=== PATIENT | male | born 1975 | race Caucasian/White ===

== ENCOUNTER 2016-04-26 18:54 | Emergency (ER) | payer BC, OTHER ==
[2016-04-26 20:48] VITALS: BP 149/92
--- NOTE | 2016-04-26 21:52 | UC ---
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 SWALLOWING DOES NOT HURT. - History of Current Complaint Chief Complaint: UCRespiratory Stated Complaint: SINUSES, SORE THROAT Time Seen by Provider: 04/26/16 21:04 Hx Obtained From: Patient Onset/Duration: Sudden Onset, Lasting Days - 2, Still Present Severity: Moderate Pain Intensity: 6 Cough: Nonproductive Associated Signs & Symptoms: Positive: Sinus Discomfort, Nasal Discharge. Negative: Dysphagia, Drooling, Wheezing, Hoarseness, Fever, Vomiting, Rash - Allergies/Home Medications Allergies/Adverse Reactions: Allergies Allergy/AdvReac Type Severity Reaction Status Date / Time Benzonatate [From Tessalon] Allergy Severe Anaphylatic Verified 04/26/16 20:41 Shock Cephalexin [From Keflex] Allergy Severe Anaphylatic Verified 04/26/16 20:41 Shock Penicillins Allergy Unknown See Comment Verified 04/26/16 20:41 Levofloxacin [From Levaquin] Allergy Hives Verified 04/26/16 20:41 Home Medications: Home Medications Chlorthalidone 25 mg PO DAILY 04/26/16 [History Confirmed 04/26/16] Fenofibrate 40 mg PO DAILY 04/26/16 [History Confirmed 04/26/16] Losartan Potassium [Cozaar] 25 mg PO DAILY 04/26/16 [History Confirmed 04/26/16] glyBURIDE TAB* [Diabeta TAB*] 2.5 mg PO DAILY 04/26/16 [History Confirmed ] metFORMIN* [Glucophage*] 500 mg PO BID 04/26/16 [History Confirmed 04/26/16] PMH/Surg Hx/FS Hx/Imm Hx Endocrine History Of: Reports: Diabetes Cardiovascular History Of: Reports: Cardiac Disorders - A-fib, Hypertension - Surgical History Surgical History: Yes Surgery Procedure, Year, and Place: T&A 2014 - Family History Known Family History: Positive: Cardiac Disease, Hypertension, Diabetes - Social History Occupation: Employed Full-time Lives: With Family Alcohol Use: None Substance Use Type: None Smoking Status (MU): Never Smoked Tobacco Review of Systems Constitutional: Negative Skin: Negative Eyes: Negative ENT: Sore Throat, Nasal Discharge, Other - SEE HPI Respiratory: Cough Cardiovascular: Negative Gastrointestinal: Negative Genitourinary: Negative Motor: Negative Neurovascular: Negative Musculoskeletal: Negative Neurological: Negative Psychological: Negative All Other Systems Reviewed And Are Negative: Yes Physical Exam Triage Information Reviewed: Yes Appearance: Well-Appearing, No Pain Distress, Obese Vital Signs: Initial Vital Signs Temp 97.8 F 04/26/16 20:44 Pulse 70 04/26/16 20:44 Resp 20 04/26/16 20:44 BP 149/92 04/26/16 20:44 Pulse Ox 97 04/26/16 20:44 Vital Signs Reviewed: Yes Eyes: Positive: Conjunctiva Clear. Negative: Discharge ENT: Positive: Hearing grossly normal, Pharynx normal, Nasal congestion, Nasal drainage, TMs normal. Negative: Tonsillar swelling, Tonsillar exudate, Trismus , Muffled/hoarse voice Dental Exam: Normal Neck: Positive: Supple, Nontender, No Lymphadenopathy Respiratory: Positive: Lungs clear, Normal breath sounds, No respiratory distress, No accessory muscle use Cardiovascular: Positive: RRR, No Murmur Musculoskeletal Exam: Normal Musculoskeletal: Positive: Strength Intact Neurological: Positive: Alert, Muscle Tone Normal Psychological: Positive: Age Appropriate Behavior Skin Exam: Normal Throat Pain/Nasal Course/Dx - Differential Dx/Diagnosis Differential Diagnosis/HQI/PQRI: Pharyngitis, Sinusitis, URI Provider Diagnoses: SINUSITIS Discharge - Discharge Plan Condition: Stable Disposition: HOME Patient Education Materials: Sinusitis (ED) Referrals: Anant Elmore MD [Primary Care Provider] - 5 Days Additional Instructions: EXPECTORANT MEDICATION: An expectorant medicine has been prescribed. This type of drug makes mucous thinner, helping the sinuses, nose, and bronchial tubes to remain free of pus and mucous. Expectorants make a cough less severe and more comfortable, and help infected sinuses drain. In general, antihistamines defeat the purpose of the expectorant by making mucous thicker. They should be avoided unless specifically recommended by your physician.
== END 2016-04-26 21:48 | disposition home or self-care (01) ==
LOC: UCCORT 18:54
DX: J32.9 Chronic sinusitis, unspecified (principal); Z88.1 Allergy status to other antibiotic agents; Z88.0 Allergy status to penicillin; Z88.8 Allergy status to other drugs, medicaments and biological substances; E11.9 Type 2 diabetes mellitus without complications; Z79.84 Long term (current) use of oral hypoglycemic drugs; I10 Essential (primary) hypertension; I48.91 Unspecified atrial fibrillation
CPT/HCPCS: 99211; G0463

== ENCOUNTER 2016-05-11 09:33 | Emergency (ER) | payer OTHER ==
[2016-05-11 10:48] VITALS: BP 154/102
--- NOTE | 2016-05-11 10:54 | UC ---
Respiratory Complaint HPI - HPI Summary HPI Summary: cough, yellow sputum, chest hurts to cough. Cough hasn't gotten better and has gotten worse since 04/26/16 when he was seen here and dx viral URI - History of Current Complaint Chief Complaint: UCRespiratory Stated Complaint: COUGH,CONGESTION Time Seen by Provider: 05/11/16 10:53 Hx Obtained From: Patient Onset/Duration: Gradual Onset, Lasting Weeks, Still Present Timing: Constant Severity Initially: Moderate Severity Currently: Moderate Pain Intensity: 0 - with cough Pain Scale Used: 0-10 Numeric Character: Cough: Productive - yellow Aggravating Factors: Nothing Alleviating Factors: Nothing Associated Signs And Symptoms: Positive: Pleuritic Chest Pain, Wheezing, URI, Nasal Congestion. Negative: Fever, Chills - Risk Factors Pulmonary Embolism Risk Factors: Negative Cardiac Risk Factors: Negative Pseudomonas Risk Factors: Negative - Allergies/Home Medications Allergies/Adverse Reactions: Allergies Allergy/AdvReac Type Severity Reaction Status Date / Time Benzonatate [From Tessalon] Allergy Severe Anaphylatic Verified 05/11/16 10:48 Shock Cephalexin [From Keflex] Allergy Severe Anaphylatic Verified 05/11/16 10:48 Shock Penicillins Allergy Unknown See Comment Verified 05/11/16 10:48 Levofloxacin [From Levaquin] Allergy Hives Verified 05/11/16 10:48 PMH/Surg Hx/FS Hx/Imm Hx Endocrine History Of: Reports: Diabetes Cardiovascular History Of: Reports: Cardiac Disorders - A-fib, Hypertension - Surgical History Surgical History: Yes Surgery Procedure, Year, and Place: T&A 2014 - Family History Known Family History: Positive: Cardiac Disease, Hypertension, Diabetes - Social History Occupation: Employed Full-time Lives: With Family Alcohol Use: None Substance Use Type: None Smoking Status (MU): Never Smoked Tobacco Review of Systems Constitutional: Negative Skin: Negative Eyes: Negative ENT: Negative Respiratory: Cough Cardiovascular: Chest Pain - with cough Gastrointestinal: Negative Genitourinary: Negative Motor: Negative Neurovascular: Negative Musculoskeletal: Negative Neurological: Negative Psychological: Negative All Other Systems Reviewed And Are Negative: Yes Physical Exam Triage Information Reviewed: Yes Appearance: No Pain Distress, Ill-Appearing, Obese Vital Signs: Initial Vital Signs Temp 97.6 F 05/11/16 10:44 Pulse 79 05/11/16 10:44 Resp 16 05/11/16 10:44 BP 154/102 05/11/16 10:44 Pulse Ox 95 05/11/16 10:44 elevated BP noted, hasn't taken BP meds this am Vital Signs Reviewed: Yes Eyes: Positive: Conjunctiva Clear ENT: Positive: Pharyngeal erythema, TMs normal Neck: Positive: Supple, Nontender Respiratory: Positive: Lungs clear, Normal breath sounds, No respiratory distress Cardiovascular: Positive: RRR, No Murmur, Pulses Normal, Brisk Capillary Refill Musculoskeletal: Positive: Strength Intact, ROM Intact Neurological: Positive: Alert, Muscle Tone Normal Psychological Exam: Normal Skin Exam: Normal UC Diagnostic Evaluation - Laboratory O2 Sat by Pulse Oximetry: 95 Respiratory Course/Dx - Differential Dx/Diagnosis Differential Diagnosis/HQI/PQRI: Asthma, Bronchitis, Lower Resp Infection, Sinusitis Provider Diagnoses: bonchitis. bronchospasm Discharge - Discharge Plan Condition: Stable Disposition: HOME Prescriptions: Albuterol HFA INHALER* [Ventolin HFA Inhaler*] 2 puff INH Q4H PRN #1 mdi PRN Reason: Cough Azithromycin TAB* [Zithromax TAB (Z-ETHAN) 250 mg #6 tabs] 2 tab PO .TODAY, THEN 1 DAILY #1 ethan guaiFENesin/CODIEN 100MG-10MG* [Robitussin AC 100Mg-10Mg*] 5 ml PO Q4H PRN #100 ml MDD 20ml PRN Reason: Cough Patient Education Materials: Acute Bronchitis (ED) Referrals: Anant Elmore MD [Primary Care Provider] -
== END 2016-05-11 11:16 | disposition home or self-care (01) ==
LOC: UCCORT 09:33
DX: J40 Bronchitis, not specified as acute or chronic (principal); J98.01 Acute bronchospasm; E11.9 Type 2 diabetes mellitus without complications; I48.91 Unspecified atrial fibrillation; I10 Essential (primary) hypertension; Z88.1 Allergy status to other antibiotic agents; Z88.0 Allergy status to penicillin; Z88.8 Allergy status to other drugs, medicaments and biological substances
CPT/HCPCS: 99212; G0463

== ENCOUNTER 2017-07-30 17:23 | Emergency (ER) | payer OTHER ==
--- OUTSIDE RECORDS SUMMARY | 2017-07-30 18:35 | XMS REPORT ---
:1975 External Reference #:[id number] Author Organization [facility] Address [address], [address] [place] [address] Phone [phone] Care Team Providers Name Role Phone Anant Elmore MD Care Team Information Telemetry Rn Unavailable Anant Elmore MD Primary Care Physician Unavailable Payers Type Date Identification Numbers Payment Provider Subscriber Commercial Expires: 2013 PayID: [id number] [facility] Mike Johnston Attn: Mary Ellen Maza [address] [place] [address] Commercial Policy Number: [id number] [facility] Mike Johnston PayID: [id number] [address] [place] [address] Problems Date Description Provider Status Onset: 09/24/2013 Closed fracture of metatarsal Tyrell Veras M.D., Active bone FACS Onset: 09/24/2013 Benign essential hypertension Tyrell Veras M.D., Active FACS Onset: 07/10/2017 Pain in limb Iván Poe M.D. 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., Active of upper limb FACS Onset: 09/24/2013 Contusion of knee Tyrell Veras M.D., Active FACS Onset: 09/24/2013 Sprain of medial collateral Tyrell Veras M.D., Active ligament of knee FACS Onset: 09/24/2013 Radial styloid tenosynovitis Tyrell Veras M.D., Active FACS Onset: 09/24/2013 Contusion of wrist Tyrell Veras M.D., Active FACS Onset: 10/25/2015 Mixed hyperlipidemia Christiano Cast M.D., Active FACC Family History Date Family Member(s) Problem(s) Comments Father CAD Father Hypertension Father Diabetes Father Glaucoma Mother Hypertension Mother Diabetes First Sister Cancer Second Sister Cancer Social History Type Date Description Comments Lives With Spouse 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 Right-handed Cigarette Use Quit Cigars Never Smoked Cigars Pipe Never Smoked A Pipe Smokeless Tobacco Never Used Smokeless Tobacco ETOH Use Currently consumes alcohol socially Smoking Patient denies history of smoking Recreational Drug Use Denies Drug Use Daily Caffeine Current Caffeine User Daily Caffeine Consumes on average 1 cup of regular coffee per day Allergies, Adverse Reactions, Alerts Date Description Reaction Status Severity Comments 09/24/2013 Penicillin active 09/24/2013 Keflex active 09/24/2013 Levaquin active 09/24/2013 Tessalon active Medications Medication Date Status Form Strength Qnty SIG Indications Ordering Provider Chlorthalidone / Active Tablets 25mg 30tabs 1 tab by Unknown 0000 mouth every morning Losartan / Active Tablets 25mg 90tabs 1 tab by Unknown Potassium 0000 mouth every morning Glyburide / Active Tablets 2.5mg 1 tab by Unknown 0000 mouth every morning Metformin HCL / Active Tablets 500mg 180tab 1 tab by Unknown 0000 s mouth twice a day Aspirin 81 Low / Active Chewtabs 81mg once a Unknown Dose 0000 day Atorvastatin / Active Tablets 10mg take 1 Unknown Calcium 0000 tablet by mouth once daily Fenofibrate / Hx Tablets 54mg Unknown 0000 - 2017 Vital Signs Date Vital Result Comment 07/10/2017 BP Systolic Sitting Left Arm 145 mmHg BP Diastolic Sitting Left Arm 83 mmHg Body Temperature 97.9 F Heart Rate 87 /min Respiratory Rate 18 /min Height 71 inches 5'11" Weight 290.00 lb BMI (Body Mass Index) 40.4 kg/m2 BSA (Body Surface Area) 2.47 m2 [place] body weight in kilograms 78 05/20/2017 BP Systolic Sitting Left Arm 150 mmHg BP Diastolic Sitting Left Arm 107 mmHg Body Temperature 98.2 F Heart Rate 80 /min Respiratory Rate 20 /min Height 71 inches 5'11" Weight 295.00 lb BMI (Body Mass Index) 41.1 kg/m2 BSA (Body Surface Area) 2.49 m2 [place] body weight in kilograms 78 09/24/2013 BP Systolic Sitting Left Arm 130 mmHg BP Diastolic Sitting Left Arm 82 mmHg Height 71 inches 5'11" Weight 290.00 lb BMI (Body Mass Index) 40.4 kg/m2 BSA (Body Surface Area) 2.47 m2 Results Test Date Test Result H/L Range Note Laboratory test finding 08/21/2015 Creatine Kinase,Total 192 U/L 44-196 1 Hemoglobin A1c 7.7 % High 0.0-5.6 1 BMP W/O Egfr 08/21/2015 BUN/Creatinine Ratio 17.3 6-22 1 Calcium 8.9 mg/dL 8.6-10.3 1 Carbon Dioxide 23 mmol/L 19-30 1 Chloride 102 mmol/L 98-110 1 Creatinine 0.86 mg/dL 0.60-1.35 1 Glucose 150 mg/dL High 65-99 1 Potassium 3.7 mmol/L 3.5-5.3 1 Sodium 137 mmol/L 135-146 1 Urea Nitrogen 15 mg/dL 7-25 1, 2 Hepatic Function Panel 08/21/2015 A/G Ratio 1.5 1.0-2.5 1 Albumin 4.1 g/dL 3.6-5.1 1 Alkaline Phosphatase 33 U/L Low 40-115 1 Alt 31 U/L 9-46 1 Ast 18 U/L 10-40 1 Bilirubin,Direct 0.1 mg/dL < Or=0.2 1 Bilirubin,Total 0.6 mg/dL 0.2-1.2 1 Globulin,Calculated 2.7 g/dL 1.9-3.7 1 Protein,Total 6.8 g/dL 6.1-8.1 1 Lipid Panel 08/21/2015 Cholesterol 182 mg/dL 125-200 1 Cholesterol/HDL Ratio 5.5 High < Or=5.0 1 HDL Cholesterol 33 mg/dL Low > Or=40 1 LDL Chol,Calculated 108 mg/dL <130 1 Non-HDL Cholesterol 150 mg/dL 1 Triglycerides 203 mg/dL High <150 1, 3 1 FASTING 2 GLUCOSE REFERENCE RANGE BASED ON FASTING SPECIMEN. 3 LDL-CHOLESTEROL RISK CATEGORY* GOAL VERY HIGH (E.G. DIABETES + CVD) <70 MG/DL HIGH (DIABETICS; CHD RISK EQUIVALENTS) <100 MG/DL MODERATELY HIGH (MULTIPLE(2+) RISK FACTORS) <130 MG/DL 0 TO 1 RISK FACTORS <160 MG/DL * NCEP REPORT. CIRCULATION 2004; 110: 227-239 Procedures Date CPT Code Description Status 05/20/2017 35389 Radiology, Finger(S), Two Views Completed 09/24/2013 56826 Radiology, Knee 3 Views Completed 09/24/2013 36547 Radiology, Wrist Complete Completed 11/02/2008 83446 Asp./Injection major joint Completed Encounters Type Date Location Provider CPT E/M Dx Office Visit 07/10/2017 4:00p [facility] Iván Poe M.D. 46533 [id number] Office Visit 06/19/2017 4:00p [facility]opa[facility] Office Iván Poe M.D. 96827 M79.644 Office Visit 05/20/2017 4:30p [facility]opa[facility] Office Dang Lopez, 44360 M79.644 [facility] Office Visit 09/24/2013 11:00a Orthopaedic Office Tyrell Veras, 86836 [phone] [place], [facility] [phone] [phone] E888.9 Plan of Care Future Appointment(s):08/14/2017 4:15 pm - Iván Poe M.D. at [facility]/21/2017 3:30 pm - Catherine Connell M.D. at [id number]/10/2017 - Iván Poe M.D.M79.644 Pain in right finger(s)
[2017-07-30 18:39] VITALS: BP 148/86
--- NOTE | 2017-07-30 19:02 | UC ---
Lower Extremity/Ankle HPI - HPI Summary HPI Summary: pt notes pain to the back of his left heel for a few months. no injury. tx with occasional motrin. - History of Current Complaint Hx Obtained From: Patient Onset/Duration: Gradual Onset Pain Intensity: 9 Able to Bear Weight: Yes <Kasandra Dawson - Last Filed: 07/30/17 19:09> <Chayo Veras - Last Filed: 07/30/17 19:25> - History of Current Complaint Chief Complaint: UCLowerExtremity Stated Complaint: LEFT ANKLE PAIN Time Seen by Provider: 07/30/17 18:32 - Allergies/Home Medications Allergies/Adverse Reactions: Allergies Allergy/AdvReac Type Severity Reaction Status Date / Time benzonatate Allergy Anaphylatic Verified 07/30/17 18:42 Shock cephalexin Allergy Anaphylatic Verified 07/30/17 18:42 Shock levofloxacin [From Levaquin] Allergy Hives Verified 07/30/17 18:42 Penicillins Allergy Unknown Verified 07/30/17 18:42 Reaction Details Home Medications: Home Medications Aspirin EC TAB* [Ecotrin EC Low Dose 81 MG*] 81 mg PO DAILY 07/30/17 [History Confirmed 07/30/17] PMH/Surg Hx/FS Hx/Imm Hx - Additional Past Medical History Additional PMH: "poor circulation" Endocrine History: Diabetes, Dyslipidemia - Surgical History Surgical History: Yes Surgery Procedure, Year, and Place: T&A 2014 - Family History Known Family History: Positive: Cardiac Disease, Hypertension, Diabetes - Social History Occupation: Employed Full-time Lives: With Family Alcohol Use: None Substance Use Type: None Smoking Status (MU): Never Smoked Tobacco - Immunization History Vaccination Up to Date: Yes <Kasandra Dawson - Last Filed: 07/30/17 19:09> Review of Systems Constitutional: Negative Skin: Negative Eyes: Negative ENT: Negative Respiratory: Negative Cardiovascular: Negative Gastrointestinal: Negative Genitourinary: Negative Motor: Negative Neurovascular: Negative Musculoskeletal: Other: - pain to back of left heel Neurological: Negative Psychological: Negative Is Patient Immunocompromised?: No All Other Systems Reviewed And Are Negative: Yes <Kasandra Dawson - Last Filed: 07/30/17 19:09> Physical Exam Triage Information Reviewed: Yes Appearance: Well-Appearing Vital Signs: Initial Vital Signs Temp 98.2 F 07/30/17 18:36 Pulse 89 04/11/18 18:36 Resp 17 07/30/17 18:36 BP 148/86 07/30/17 18:36 Pulse Ox 99 07/30/17 18:36 Vital Signs Reviewed: Yes Eyes: Positive: Conjunctiva Clear ENT: Positive: Normal ENT inspection Neck: Positive: Supple, Nontender, No Lymphadenopathy Respiratory: Positive: Lungs clear, Normal breath sounds Cardiovascular: Positive: RRR, No Murmur Abdomen Description: Positive: Nontender, No Organomegaly, Soft Bowel Sounds: Positive: Present Musculoskeletal: Positive: Other: - LLE: chronic venous stasis pigment changes. no swelling or cords. joints not swollen or tender. distal achilles and its insertion is tender but no cord. leg has full s/v/m function. Neurological: Positive: Alert Psychological: Positive: Age Appropriate Behavior Skin Exam: Normal <Kasandra Dawson - Last Filed: 07/30/17 19:09> Vital Signs: Initial Vital Signs Temp 98.2 F 07/30/17 18:36 Pulse 89 07/30/17 18:36 Resp 17 07/30/17 18:36 BP 148/86 07/30/17 18:36 Pulse Ox 99 07/30/17 18:36 <Chayo Veras - Last Filed: 07/30/17 19:25> Lower Extremity Course/Dx - Course Course Of Treatment: no concern for infection, dvt or bony pathology. exam c/w achilles tendinitis. will tx short term nsaid, heel lift and f/u pcp - Differential Dx/Diagnosis Provider Diagnoses: achilles tendinitis on L <Kasandra Dawson - Last Filed: 07/30/17 19:09> Discharge - Sign-Out/Discharge Documenting (check all that apply): Discharge - Billing Disposition and Condition Condition: STABLE Disposition: HOME <Kasandra Dawson - Last Filed: 07/30/17 19:09> - Billing Disposition and Condition Condition: STABLE Disposition: HOME <Chayo Veras - Last Filed: 07/30/17 19:25> - Discharge Plan Condition: Stable Disposition: HOME Prescriptions: Naproxen [Naprosyn] 500 mg PO BID #10 tablet Patient Education Materials: Achilles Tendinitis (ED) Referrals: Anant Elmore MD [Primary Care Provider] - 7 Days Additional Instructions: CONSIDER A HEEL LIFT/CUSHION IN YOUR SHOE Attestation Statement User Type: Provider - I was available for consult. This patient was seen by the OSBALDO. The patient was not presented to, seen by, or examined by me. -Tolu <Chayo Veras - Last Filed: 07/30/17 19:25>
== END 2017-07-30 19:09 | disposition home or self-care (01) ==
LOC: UCCORT 17:23
DX: M76.62 Achilles tendinitis, left leg (principal); Z88.3 Allergy status to other anti-infective agents; Z88.8 Allergy status to other drugs, medicaments and biological substances; Z88.0 Allergy status to penicillin
CPT/HCPCS: 99212; G0463

== ENCOUNTER 2018-02-05 17:15 | Emergency (ER) | payer OTHER ==
[2018-02-05 19:24] VITALS: BP 150/82
--- NOTE | 2018-02-05 19:50 | UC ---
Respiratory Complaint HPI - HPI Summary HPI Summary: Pt c/o chest congestion, "burning" cough, nasal congestion and fever. Pt also c /o of tender "lumps" in bilateral armpits. - History of Current Complaint Chief Complaint: UCGeneralIllness Stated Complaint: SORE THROAT Time Seen by Provider: 02/05/18 19:33 Hx Obtained From: Patient Onset/Duration: Sudden Onset Timing: Constant Severity Initially: Mild Severity Currently: Mild Pain Intensity: 5 Character: Cough: Nonproductive Aggravating Factors: Exertion, Deep Breaths Associated Signs And Symptoms: Positive: Fever, URI - Risk Factors Pulmonary Embolism Risk Factors: Negative Cardiac Risk Factors: Negative Pseudomonas Risk Factors: Negative Tuberculosis Risk Factors: Negative - Allergies/Home Medications Allergies/Adverse Reactions: Allergies Allergy/AdvReac Type Severity Reaction Status Date / Time benzonatate Allergy Anaphylatic Verified 02/05/18 19:22 Shock cephalexin Allergy Anaphylatic Verified 02/05/18 19:22 Shock levofloxacin [From Levaquin] Allergy Hives Verified 02/05/18 19:22 Penicillins Allergy Unknown Verified 02/05/18 19:22 Reaction Details Home Medications: Home Medications Acetaminophen [Tylenol Extra Strength] 1,000 mg PO ONCE 02/05/18 [History Confirmed 02/05/18] PMH/Surg Hx/FS Hx/Imm Hx Previously Healthy: Yes - Surgical History Surgical History: Yes Surgery Procedure, Year, and Place: T&A 2014 - Family History Known Family History: Positive: Cardiac Disease, Hypertension, Diabetes - Social History Occupation: Employed Full-time Lives: With Family Alcohol Use: None Substance Use Type: None Smoking Status (MU): Never Smoked Tobacco Have You Smoked in the Last Year: No - Immunization History Vaccination Up to Date: Yes Review of Systems Constitutional: Fever, Chills Skin: Other - tender masses Eyes: Negative ENT: Negative Respiratory: Cough Cardiovascular: Negative Gastrointestinal: Negative Genitourinary: Negative Motor: Negative Neurovascular: Negative Musculoskeletal: Myalgia Neurological: Negative Psychological: Negative Is Patient Immunocompromised?: No All Other Systems Reviewed And Are Negative: Yes Physical Exam Triage Information Reviewed: Yes Appearance: Well-Appearing Vital Signs: Initial Vital Signs Temp 99.0 F 02/05/18 19:18 Pulse 93 02/05/18 19:18 Resp 19 02/05/18 19:18 BP 150/82 02/05/18 19:18 Pulse Ox 100 02/05/18 19:18 Eye Exam: Normal ENT: Positive: Nasal congestion Dental Exam: Normal Neck exam: Normal Respiratory Exam: Normal Cardiovascular Exam: Normal Musculoskeletal: Positive: Other: - c/o of tenderness with examination of anterior chest/sternum/ribs 5-7 between ribs Neurological Exam: Normal Psychological Exam: Normal Skin Exam: Other - mulitple furuncles in bialteral axilla, firm, mild erythema, UC Diagnostic Evaluation - Laboratory O2 Sat by Pulse Oximetry: 100 Respiratory Course/Dx - Differential Dx/Diagnosis Differential Diagnosis/HQI/PQRI: Bronchitis, Other - pleurisy. costachondritis Provider Diagnoses: bronchitis. carbuncles bialteral axilla Discharge - Sign-Out/Discharge Documenting (check all that apply): Patient Departure All imaging exams completed and their final reports reviewed: No Studies - Discharge Plan Condition: Stable Disposition: HOME Prescriptions: DOXYcycline CAP(*) [DOXYcycline 100MG CAP(*)] 100 mg PO Q12H #20 cap Patient Education Materials: Upper Respiratory Infection (ED), Abscess (ED), Warm Compress or Soak (ED) Referrals: Anant Elmore MD [Primary Care Provider] - 5 Days - Billing Disposition and Condition Condition: STABLE Disposition: Home
== END 2018-02-05 20:06 | disposition home or self-care (01) ==
LOC: UCCORT 17:15
DX: J40 Bronchitis, not specified as acute or chronic (principal); L02.432 Carbuncle of left axilla; L02.431 Carbuncle of right axilla; Z88.0 Allergy status to penicillin; Z88.1 Allergy status to other antibiotic agents; Z88.8 Allergy status to other drugs, medicaments and biological substances
CPT/HCPCS: 99212; G0463

== ENCOUNTER 2018-07-10 17:26 | Emergency (ER) | payer OTHER ==
[2018-07-10 18:03] VITALS: BP 143/83
--- NOTE | 2018-07-10 18:31 | UC ---
Throat Pain/Nasal Donald HPI - HPI Summary HPI Summary: Pt present with c/o sudden onset of ST. X 1 day. - History of Current Complaint Chief Complaint: UCRespiratory Stated Complaint: SORE THROAT Time Seen by Provider: 07/10/18 18:19 Hx Obtained From: Patient Onset/Duration: Sudden Onset, Lasting Days, Still Present Severity: Moderate Pain Intensity: 5 Cough: None Associated Signs & Symptoms: Positive: Dysphagia Related History: Smoking - Epiglottits Risk Factors Epiglottis Risk Factors: Negative - Allergies/Home Medications Allergies/Adverse Reactions: Allergies Allergy/AdvReac Type Severity Reaction Status Date / Time benzonatate Allergy Anaphylatic Verified 07/10/18 18:00 Shock cephalexin Allergy Anaphylatic Verified 07/10/18 18:00 Shock levofloxacin [From Levaquin] Allergy Hives Verified 07/10/18 18:00 Penicillins Allergy Unknown Verified 07/10/18 18:00 Reaction Details PMH/Surg Hx/FS Hx/Imm Hx Previously Healthy: Yes - Surgical History Surgical History: Yes Surgery Procedure, Year, and Place: T&A 2014 - Family History Known Family History: Positive: Cardiac Disease, Hypertension, Diabetes - Social History Occupation: Employed Full-time, Works From/At Home Lives: With Family Alcohol Use: Rare Substance Use Type: None Smoking Status (MU): Never Smoked Tobacco Have You Smoked in the Last Year: No - Immunization History Vaccination Up to Date: Yes Review of Systems All Other Systems Reviewed And Are Negative: Yes Constitutional: Positive: Negative Skin: Positive: Negative Eyes: Positive: Negative ENT: Positive: Sore Throat Respiratory: Positive: Negative Cardiovascular: Positive: Negative Gastrointestinal: Positive: Negative Genitourinary: Positive: Negative Motor: Positive: Negative Neurovascular: Positive: Negative Musculoskeletal: Positive: Negative Neurological: Positive: Negative Psychological: Positive: Negative Is Patient Immunocompromised?: No Physical Exam Triage Information Reviewed: Yes Appearance: Well-Appearing, Obese Vital Signs: Initial Vital Signs Temp 98.1 F 07/10/18 18:01 Pulse 86 07/10/18 18:01 Resp 16 07/10/18 18:01 BP 143/83 07/10/18 18:01 Pulse Ox 98 07/10/18 18:01 Vital Signs Reviewed: Yes Eye Exam: Normal ENT Exam: Normal ENT: Positive: Normal ENT inspection, Pharynx normal Dental Exam: Normal Neck exam: Normal Respiratory Exam: Normal Cardiovascular Exam: Normal Musculoskeletal Exam: Normal Neurological Exam: Normal Psychological Exam: Normal Skin Exam: Normal Throat Pain/Nasal Course/Dx - Differential Dx/Diagnosis Differential Diagnosis/HQI/PQRI: Influenza, Pharyngitis, Tonsillitis Provider Diagnosis: Viral syndrome Discharge - Sign-Out/Discharge Documenting (check all that apply): Patient Departure All imaging exams completed and their final reports reviewed: No Studies - Discharge Plan Condition: Stable Disposition: HOME Patient Education Materials: Viral Syndrome (ED) Referrals: Anant Elmore MD [Primary Care Provider] - If Needed - Billing Disposition and Condition Condition: STABLE Disposition: Home
== END 2018-07-10 18:39 | disposition home or self-care (01) ==
LOC: UCCORT 17:26
DX: B34.9 Viral infection, unspecified (principal); J02.9 Acute pharyngitis, unspecified; R13.10 Dysphagia, unspecified; E66.9 Obesity, unspecified; Z88.8 Allergy status to other drugs, medicaments and biological substances; Z88.1 Allergy status to other antibiotic agents; Z88.0 Allergy status to penicillin
CPT/HCPCS: 87651; 99211; G0463

== ENCOUNTER 2018-08-20 17:50 | Emergency (ER) | payer OTHER ==
[2018-08-20 18:42] VITALS: BP 144/76
--- NOTE | 2018-08-20 18:56 | UC ---
Throat Pain/Nasal Donald HPI - HPI Summary HPI Summary: Pt presents with c/o sudden onset of ST X2 days. 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 - History of Current Complaint Chief Complaint: UCGeneralIllness Stated Complaint: SORE THROAT Time Seen by Provider: 08/20/18 18:46 Hx Obtained From: Patient Onset/Duration: Sudden Onset, Lasting Days, Still Present Severity: Moderate Pain Intensity: 8 Associated Signs & Symptoms: Positive: Dysphagia - Epiglottits Risk Factors Epiglottis Risk Factors: Sudden Onset - Allergies/Home Medications Allergies/Adverse Reactions: Allergies Allergy/AdvReac Type Severity Reaction Status Date / Time benzonatate Allergy Anaphylatic Verified 08/20/18 18:42 Shock cephalexin Allergy Anaphylatic Verified 08/20/18 18:42 Shock levofloxacin [From Levaquin] Allergy Hives Verified 08/20/18 18:42 Penicillins Allergy Unknown Verified 08/20/18 18:42 Reaction Details Home Medications: Home Medications Phenol/Glycerin [Chloraseptic Max Sore Thr] 1 spr MT Q4H PRN 08/20/18 [History Confirmed 08/20/18] PMH/Surg Hx/FS Hx/Imm Hx Previously Healthy: Yes - Surgical History Surgical History: Yes Surgery Procedure, Year, and Place: T&A 2014 - Family History Known Family History: Positive: Cardiac Disease, Hypertension, Diabetes - Social History Occupation: Employed Full-time Lives: With Family Alcohol Use: Rare Substance Use Type: None Smoking Status (MU): Never Smoked Tobacco Have You Smoked in the Last Year: No - Immunization History Vaccination Up to Date: Yes Review of Systems All Other Systems Reviewed And Are Negative: Yes Constitutional: Positive: Chills Skin: Positive: Negative Eyes: Positive: Negative ENT: Positive: Sore Throat Respiratory: Positive: Cough Cardiovascular: Positive: Negative Gastrointestinal: Positive: Negative Genitourinary: Positive: Negative Motor: Positive: Negative Neurovascular: Positive: Negative Musculoskeletal: Positive: Negative Neurological: Positive: Negative Psychological: Positive: Negative Is Patient Immunocompromised?: No Physical Exam Triage Information Reviewed: Yes Appearance: Well-Appearing Vital Signs: Initial Vital Signs Temp 97.7 F 08/20/18 18:37 Pulse 92 08/20/18 18:37 Resp 21 08/20/18 18:37 BP 144/76 08/20/18 18:37 Pulse Ox 97 08/20/18 18:37 Vital Signs Reviewed: Yes Eye Exam: Normal ENT: Positive: Pharyngeal erythema Dental Exam: Normal Neck exam: Normal Respiratory Exam: Normal Cardiovascular Exam: Normal Musculoskeletal Exam: Normal Neurological Exam: Normal Psychological Exam: Normal Skin Exam: Normal Throat Pain/Nasal Course/Dx - Differential Dx/Diagnosis Differential Diagnosis/HQI/PQRI: Pharyngitis, Tonsillitis Provider Diagnosis: Sore throat (viral) Discharge - Sign-Out/Discharge Documenting (check all that apply): Patient Departure All imaging exams completed and their final reports reviewed: No Studies - Discharge Plan Condition: Stable Disposition: HOME Patient Education Materials: Pharyngitis (ED), Safe Use of NSAIDs (ED) Referrals: Anant Elmore MD [Primary Care Provider] - If Needed - Billing Disposition and Condition Condition: STABLE Disposition: Home
== END 2018-08-20 19:21 | disposition home or self-care (01) ==
LOC: UCCORT 17:50
DX: J02.8 Acute pharyngitis due to other specified organisms (principal); R13.10 Dysphagia, unspecified; Z88.1 Allergy status to other antibiotic agents; Z88.0 Allergy status to penicillin; Z88.8 Allergy status to other drugs, medicaments and biological substances
CPT/HCPCS: 87651; 99211; G0463

== ENCOUNTER 2019-07-09 19:14 | Emergency (ER) | payer OTHER ==
[2019-07-09 19:37] VITALS: BP 134/82
--- NOTE | 2019-07-09 19:50 | UC ---
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 Mild congestion, no cough or sore throat. One toddler has had respiratory illness and OM. Took ibuprofen yesterday. Has had some left sided headache, but also thinks that he might have strained his neck picking up a heavy child. - History of Current Complaint Chief Complaint: UCEar Stated Complaint: EAR COMPLAINT Time Seen by Provider: 07/09/19 19:40 Hx Obtained From: Patient Onset/Duration: Gradual Onset, Lasting Days - 2-3 Severity Initially: Mild Severity Currently: Moderate Pain Intensity: 5 Alleviating Factors: OTC Meds Associated Signs/Symptoms: Negative: Discharge, Hearing Loss - Allergies/Home Medications Allergies/Adverse Reactions: Allergies Allergy/AdvReac Type Severity Reaction Status Date / Time benzonatate Allergy Anaphylatic Verified 07/09/19 19:37 Shock cephalexin Allergy Anaphylatic Verified 07/09/19 19:37 Shock levofloxacin [From Levaquin] Allergy Hives Verified 07/09/19 19:37 Penicillins Allergy Unknown Verified 07/09/19 19:37 Reaction Details Home Medications: Home Medications Chlorthalidone 25 mg PO DAILY 04/26/16 [History Confirmed 07/09/19] Losartan Potassium [Cozaar] 25 mg PO DAILY 04/26/16 [History Confirmed 07/09/19] glyBURIDE TAB* [Diabeta TAB*] 2.5 mg PO BID 04/26/16 [History Confirmed 07/09/19 ] metFORMIN* [Glucophage 500 MG TAB *] 500 mg PO BID 04/26/16 [History Confirmed 07/09/19] Aspirin EC TAB* [Ecotrin EC Low Dose 81 MG*] 81 mg PO DAILY 07/30/17 [History Confirmed 07/09/19] Acetaminophen [Tylenol Extra Strength] 1,000 mg PO ONCE PRN 02/05/18 [History Confirmed 07/09/19] Phenol/Glycerin [Chloraseptic Max Sore Thr] 1 spr MT Q4H PRN 08/20/18 [History Confirmed 07/09/19] Azithromyxin ETHAN (NF) [Z-Ethan (Zithromax) 250 mg tabs #6] 2 tab PO .TODAY, THEN 1 DAILY #6 tab 07/09/19 [Rx] Fenofibrate 40 mg PO DAILY 07/09/19 [History Confirmed 07/09/19] PMH/Surg Hx/FS Hx/Imm Hx Endocrine History: Diabetes Cardiovascular History: Hypertension - Surgical History Surgical History: Yes Surgery Procedure, Year, and Place: T&A 2014 - Family History Known Family History: Positive: Cardiac Disease, Hypertension, Diabetes, Other - sister had breast cancer - Social History Occupation: Employed Full-time Lives: With Family Alcohol Use: Rare Substance Use Type: None Smoking Status (MU): Never Smoked Tobacco Have You Smoked in the Last Year: No - Immunization History Vaccination Up to Date: Yes Review of Systems All Other Systems Reviewed And Are Negative: Yes Constitutional: Positive: Negative Skin: Positive: Negative Eyes: Positive: Negative ENT: Positive: Ear Ache Respiratory: Positive: Negative Cardiovascular: Positive: Negative Gastrointestinal: Positive: Negative Genitourinary: Positive: Negative Motor: Positive: Negative Neurovascular: Positive: Negative Musculoskeletal: Positive: Negative Neurological/Mental Status: Positive: Headache - resolved Is Patient Immunocompromised?: No Physical Exam Triage Information Reviewed: Yes Appearance: Well-Appearing, Pain Distress - mild Vital Signs: Initial Vital Signs Temp 97.3 F 07/09/19 19:33 Pulse 88 07/09/19 19:33 Resp 18 07/09/19 19:33 BP 134/82 07/09/19 19:33 Pulse Ox 95 07/09/19 19:33 ENT: Positive: Pharyngeal erythema - tonsils absent., TM dull - left TM dull and erythematous Dental Exam: Normal Respiratory: Positive: Lungs clear, Normal breath sounds Cardiovascular: Positive: RRR, No Murmur Musculoskeletal Exam: Normal Neurological Exam: Normal Psychological Exam: Normal Skin Exam: Normal Ear Complaint Course/Dx - Course Course Of Treatment: zpack for treatment of otitis media. Discussed that he has anaphylaxis with use of cephalexin. - Differential Dx/Diagnosis Differential Diagnosis/HQI/PQRI: Cerumen Impaction, Otitis Media, URI Provider Diagnosis: Left otitis media Discharge ED - Sign-Out/Discharge Documenting (check all that apply): Patient Departure All imaging exams completed and their final reports reviewed: No Studies - Discharge Plan Condition: Stable Disposition: HOME Prescriptions: Azithromyxin ETHAN (NF) [Z-Ethan (Zithromax) 250 mg tabs #6] 2 tab PO .TODAY, THEN 1 DAILY #6 tab Patient Education Materials: Ear Infection (ED) Referrals: Maritza Dangelo MD [Primary Care Provider] - Additional Instructions: Please take the full course of antibiotic treatment. Use acetaminophen as needed for relief of pain. - Billing Disposition and Condition Condition: STABLE Disposition: Home
== END 2019-07-09 20:04 | disposition home or self-care (01) ==
LOC: UCCORT 19:14
DX: H66.92 Otitis media, unspecified, left ear (principal); E11.9 Type 2 diabetes mellitus without complications; Z79.84 Long term (current) use of oral hypoglycemic drugs; I10 Essential (primary) hypertension; Z79.899 Other long term (current) drug therapy; Z88.1 Allergy status to other antibiotic agents; Z88.0 Allergy status to penicillin; Z88.8 Allergy status to other drugs, medicaments and biological substances
CPT/HCPCS: 99212; G0463

== ENCOUNTER 2019-07-27 16:57 | Emergency (ER) | payer OTHER ==
[2019-07-27 17:24] VITALS: BP 146/81
--- NOTE | 2019-07-27 17:36 | UC ---
Ear Complaint HPI - HPI Summary HPI Summary: 43-year-old male comes in with a chief complaint of bilateral ear pain. Patient had pain in his left ear starting more than 2 weeks ago. He was treated with Jaswinder azithromycin which the patient reports he did start feeling better however the pain in the left ear has gotten worse and he also has pain in the right ear. Denies fevers or sinusitis symptoms with sore throat. Patient is not a swimmer. - History of Current Complaint Chief Complaint: UCEar Stated Complaint: EAR PAIN Time Seen by Provider: 07/27/19 17:13 Pain Intensity: 6 - Allergies/Home Medications Allergies/Adverse Reactions: Allergies Allergy/AdvReac Type Severity Reaction Status Date / Time benzonatate Allergy Anaphylatic Verified 07/27/19 17:20 Shock cephalexin Allergy Anaphylatic Verified 07/27/19 17:20 Shock levofloxacin [From Levaquin] Allergy Hives Verified 07/27/19 17:20 Penicillins Allergy Unknown Verified 07/27/19 17:20 Reaction Details Home Medications: Home Medications Chlorthalidone 25 mg PO DAILY 04/26/16 [History Confirmed 07/27/19] Losartan Potassium [Cozaar] 25 mg PO DAILY 04/26/16 [History Confirmed 07/27/19] glyBURIDE TAB* [Diabeta TAB*] 2.5 mg PO BID 04/26/16 [History Confirmed 07/27/19 ] metFORMIN* [Glucophage 500 MG TAB *] 500 mg PO BID 04/26/16 [History Confirmed 07/27/19] Aspirin EC TAB* [Ecotrin EC Low Dose 81 MG*] 81 mg PO DAILY 07/30/17 [History Confirmed 07/27/19] Fenofibrate 40 mg PO DAILY 07/09/19 [History Confirmed 07/27/19] DOXYcycline CAP(*) [DOXYcycline 100MG CAP(*)] 100 mg PO BID #20 cap 07/27/19 [Rx ] Neomyc/Polym/HC 1% OTIC SUSP* [Cortisporin Otic Susp 1%*] 4 drop BOTH EARS QID # 1 btl 07/27/19 [Rx] PMH/Surg Hx/FS Hx/Imm Hx Previously Healthy: Yes Endocrine History: Diabetes, Dyslipidemia Cardiovascular History: Hypertension - Surgical History Surgical History: Yes Surgery Procedure, Year, and Place: T&A, 2014 - Family History Known Family History: Positive: Cardiac Disease, Hypertension, Diabetes, Other - sister had breast cancer - Social History Alcohol Use: Rare Substance Use Type: None Smoking Status (MU): Never Smoked Tobacco Have You Smoked in the Last Year: No - Immunization History Vaccination Up to Date: Yes Review of Systems All Other Systems Reviewed And Are Negative: Yes Constitutional: Positive: Negative Skin: Positive: Negative Eyes: Positive: Negative ENT: Positive: Ear Ache Respiratory: Positive: Negative Cardiovascular: Positive: Negative Motor: Positive: Negative Neurovascular: Positive: Negative Musculoskeletal: Positive: Negative Neurological/Mental Status: Positive: Negative Psychological: Positive: Negative Is Patient Immunocompromised?: No Physical Exam Triage Information Reviewed: Yes Appearance: Well-Appearing, No Pain Distress, Well-Nourished Vital Signs: Initial Vital Signs Temp 98.8 F 07/27/19 17:18 Pulse 82 07/27/19 17:18 Resp 18 07/27/19 17:18 BP 146/81 07/27/19 17:18 Pulse Ox 98 07/27/19 17:18 Vital Signs Reviewed: Yes Eye Exam: Normal Eyes: Positive: Conjunctiva Clear ENT: Positive: Other - Patient has mild tenderness to palpation on both tragi. Left ear canal has some scattered earwax and it but is not impacted or excessive in volume. Both TMs are not erythematous. I cannot tell if there is fluid behind the TMs. Neck: Positive: Supple Respiratory: Positive: No respiratory distress Musculoskeletal: Positive: Strength Intact, ROM Intact Neurological: Positive: Alert Psychological: Positive: Age Appropriate Behavior Skin Exam: Normal Ear Complaint Course/Dx - Course Course Of Treatment: Due to the duration of symptoms we'll treat with an antibiotic. Will use doxycycline as the patient is allergic to penicillins and cephalosporins and fluoroquinolones. Also use antibiotic eardrops as there was some tenderness to palpation of the tragi. Patient is seeing Dr. Garrido in the past. Recommended follow-up with ENT if not completely improved. - Differential Dx/Diagnosis Provider Diagnosis: Acute pain of both ears Discharge ED - Sign-Out/Discharge Documenting (check all that apply): Patient Departure All imaging exams completed and their final reports reviewed: No Studies - Discharge Plan Condition: Stable Disposition: HOME Prescriptions: DOXYcycline CAP(*) [DOXYcycline 100MG CAP(*)] 100 mg PO BID #20 cap Neomyc/Polym/HC 1% OTIC SUSP* [Cortisporin Otic Susp 1%*] 4 drop BOTH EARS QID # 1 btl Patient Education Materials: Otitis Externa (ED), Earache (ED), Serous Otitis Media (ED) Referrals: Maritza Dangelo MD [Primary Care Provider] - Дмитрий Garrido MD [Medical Doctor] - Julio Cesar Serna MD [Medical Doctor] - Enrique Duarte MD [Medical Doctor] - Additional Instructions: FOLLOW UP WITH ENT IF NOT COMPLETELY IMPROVED. GET REEVALUATED IF NOT IMPROVING OR WORSE OR ANY QUESTIONS OR CONCERNS. - Billing Disposition and Condition Condition: STABLE Disposition: Home
== END 2019-07-27 17:39 | disposition home or self-care (01) ==
LOC: UCCORT 16:57
DX: H92.03 Otalgia, bilateral (principal); Z88.1 Allergy status to other antibiotic agents; Z88.0 Allergy status to penicillin; E11.9 Type 2 diabetes mellitus without complications; E78.5 Hyperlipidemia, unspecified; I10 Essential (primary) hypertension; Z79.84 Long term (current) use of oral hypoglycemic drugs; Z79.82 Long term (current) use of aspirin; Z79.899 Other long term (current) drug therapy
CPT/HCPCS: 99212; G0463